=== PATIENT | female | born 1990 | race Caucasian/White ===

== ENCOUNTER 2019-10-15 11:07 | Emergency (ER) | payer OTHER, SELFPAY ==
[2019-10-15 11:12] VITALS: BP 127/73; PULSE 79; RESP 16; TEMP 36.7; O2SAT 100
--- NOTE | 2019-10-15 11:46 | ED.GENADULT ---
HPI - General Adult General Chief complaint: Upper Respiratory Infection Stated complaint: sore throat History of Present Illness HPI narrative: Patient is a 29-year-old female who presents the urgent care via POV for evaluation of a sore throat that began 2 days ago. Additionally, she reports her throat pain is intermittent and a blistering pain . Current pain is 7 out of 10 on a pain scale. History of strep. Today symptoms are different than previous episodes of strep. Throat pain improves with ibuprofen and worsens with swallowing. Pertinent negatives: fever, chills, poor p.o. intake, myalgias, flu-like symptoms, ear pain/drainage, sinus trouble, headache, nasal congestion, rhinorrhea, lymphadenopathy, dizziness, LOC, inability to swallow, drooling, hoarseness, halitosis, abdominal pain, nausea, vomiting, diarrhea, cough, wheezing, sob, chest pain, heart murmurs, and heart palpations. Related Data Home Medications Medication Instructions Recorded Confirmed ibuprofen 200 mg PO Q6H PRN 10/15/19 10/15/19 Allergies Allergy/AdvReac Type Severity Reaction Status Date / Time oxycodone Allergy Intermediate SWELLING Verified 10/15/19 11:17 OF TONGUE Review of Systems Review of Systems: Narrative: All other systems reviewed and are negative PMFSH Past Medical History Medical History IUD (intrauterine device) in place Kidney stone Surgical History Surgical History H/O shoulder surgery Rt History of nasal surgery History of tonsillectomy Social History Social History Smoking status: Former smoker Gender identity (if verbalized by the patient): Female Comments I have reviewed and agree with the patient's past medical, surgical, social, and family hx as documented by the RN. There is no relevant family history pertinent to the presenting complaint. Exam Narrative: Exam Narrative: GENERAL: Well-appearing, well-nourished, and in no acute distress. HEAD: Normocephalic, atraumatic. No sinus tenderness or facial swelling appreciated. EYES: PERRLA and EOMI. No evidence of erythema, swelling, or drainage. ENT: Bilateral external ears and ear canals normal. Bilateral TMs are normal.No TM perforation. Nares clear, no rhinorrhea or epistaxis. Bilateral turbinates without erythema/ swelling. Mucous membranes moist and pink. Moderate erythema appreciated to posterior pharynx. Uvula is midline without erythema and swelling. No evidence of petechial rash, cobblestoning, lesions, ulcers, swelling, exudates, peritonsillar abscess, tenting, or drooling. Breath odor and voice normal. NECK: Supple. No Lymphadenopathy or nuchal rigidity appreciated. CHEST: Bilateral lung garcia are clear to auscultation. No respiratory distress. No evidence of cough or pleuritic cp upon examination. HEART: Regular rate and rhythm. No murmur, gallop, or rub heard. EXTREMITIES: Normal range of motion. No edema. SKIN: Warm, dry, no rash. NEURO: No focal deficits. Alert and oriented x3. . Course Vital Signs Vital signs: Vital Signs Temperature 98.1 F 10/15/19 11:12 Pulse Rate 79 10/15/19 11:12 Respiratory Rate 16 10/15/19 11:12 Blood Pressure 127/73 10/15/19 11:12 Pulse Oximetry 100 10/15/19 11:12 Temperature 98.1 F 10/15/19 11:12 Pulse Rate 79 10/15/19 11:12 Respiratory Rate 16 10/15/19 11:12 Blood Pressure 127/73 10/15/19 11:12 Pulse Oximetry 100 10/15/19 11:12 Medical Decision Making Differential Diagnosis Differential Diagnosis: Allergic rhinitis, ABRS, acute viral sinusitis, strep pharyngitis, nasopharyngitis, bronchitis, pneumonia, AOM, otitis externa, viral URI, influenza Medical Records Medical records reviewed: Yes I reviewed the patient's medical records. Vital Signs Vital Signs: Vital Signs Temp
== END 2019-10-15 12:00 | disposition home or self-care (01) ==
PROVIDERS: Emergency Provider Nurse Practitioner Family
DX: J02.9 Acute pharyngitis, unspecified (principal)
CPT/HCPCS: 87081; 87880; 99213; G0463

== ENCOUNTER 2022-04-26 10:06 | Outpatient (CLI) | payer OTHER, BC, SELFPAY ==
[2022-04-26 10:37] LABS: Hematocrit 35.5 % (37.0-47.0); Hemoglobin 11.8 g/dL (12.0-15.0); Mean Corpuscular HGB Conc 33.2 g/dl (32-36); Mean Corpuscular Hemoglobin 31.1 pg (26-34); Mean Corpuscular Volume 93.7 fl (80-100); Mean Platelet Volume 11.4 fl (7.4-10.4); Platelet Count Result 221 k/mm3 (150-375); Red Blood Count 3.79 M/mm3 (4.2-5.4); Red Cell Distribution Width 14.2 % (11.5-14.5)
[2022-04-27 07:08] LABS: Rapid Plasma Reagin Non-Reactive (NonReactive)
== END 2022-04-26 10:07 | disposition home or self-care (01) ==
PROVIDERS: PCP Family Medicine; Visit Provider Family Medicine
DX: Z34.93 Encounter for supervision of normal pregnancy, unspecified, third trimester (principal); Z3A.00 Weeks of gestation of pregnancy not specified
CPT/HCPCS: 36415; 85027; 86592; 86850; 86900; 86901

== ENCOUNTER 2022-04-27 09:56 | Inpatient (IN) | payer OTHER, BC, SELFPAY ==
[2022-04-27] VITALS (57 sets, daily range): BP systolic 96–125; BP diastolic 55–95; PULSE 64–170; RESP 12–18; TEMP 36.3–36.6; O2SAT 96–100; BMI 34.1
--- NOTE | 2022-04-27 09:56 | LDADM ---
This patient, Lena Urrutia, was admitted to Labor/Delivery/Recovery 119 on 04/27/22 at 09:56. Plans for labor, pain management and were discussed with patient. Patient/family oriented to hospital policies and general routines including ID bracelet, bed and alarms, visiting hours, pain management, procedures, bathroom and other care routines, personal items, smoking policy, room service/diet and guest tray routines, infant security routines, and visiting hours. Patient/Family are encouraged to report perceived risks to care and to ask questions if they do not understand what they are told or what they should do. See OBIX for further documentation.
[2022-04-27] MEDS: LACTATED RINGERS 1,000 ML 125 ML IV CONT (10:43)
--- NOTE | 2022-04-27 10:59 | WPDANESEPPF ---
Anes - Initial Pre Proc Eval Procedure: Operation Date: 04/27/22 12:00 Proposed Procedures p Repeat Section - Wojciech Chong MD Date/Time: 04/27/22 10:59 Surgeon: Wojciech Chong MD Pre Op Diagnosis: c/s Patient Data Age: 32 Gender: F Height: 1.55 m Weight: 82 kg Last Vital Signs Pulse 90 04/27/22 10:48 BP 113/77 04/27/22 10:48 Allergies Allergy/AdvReac Type Severity Reaction Status Date / Time oxycodone Allergy Severe Difficulty Verified 04/01/22 12:40 Breathing Home Medications Medication Instructions Recorded Confirmed Type prenat.vits,gila,[id number] 1 tablet PO DAILY 04/01/22 04/27/22 History Patient hx anesthesia problems: none Family hx anesthesia problems: none Results Review: All pre-operative results and documents have been reviewed as part of the pre-operative evaluation. [facility] Past Medical History Medical History (Updated 04/27/22 @ 11:23 by Wojciech Chong MD) Kidney stone Surgical History Surgical History (Updated 04/27/22 @ 11:08 by Wojciech Chong MD) H/O shoulder surgery Rt History of delivery History of nasal surgery History of tonsillectomy Family History Family History Other Deaf Grandparent Hypertension Social History Social History Smoking status: Former smoker Second hand tobacco smoke exposure: No Substance use: never Gender identity (if verbalized by the patient): Female Spiritual care concerns: No Anes - Eval Final PreProcedure Day of Procedure 04/27/22 10:59 Patient weight: obese Heart: regular rate and rhythm Lungs: clear to auscultation and normal air movement Airway: Mallampati scale class II Neurological: alert and oriented Last oral intake: >/= 8 hours ASA classification: II Emergent: no Anesthetic plan: proceed Anesthesia type and monitoring: regional spinal Results Review: All pre-operative results and documents have been reviewed as part of the pre-operative evaluation. Informed Consent: The patient's anesthetic plan and its attendant risks and benefits were discussed with the patient/family/POA. Questions were solicited and answers provided to the satisfaction of the patient/family/POA.
--- NOTE | 2022-04-27 11:05 | P.HP_ITS ---
H&P: HPI History of Present Illness Date/Time: 04/27/22 11:05 Chief Complaint: Here for c section. Narrative: 32 y/o at 39 4/7 weeks gestation here for repeat . GBS neg. essentially uncomplicated. Review of Systems Review of Systems: All systems reviewed & are unremarkable except as noted in HPI and below PMFSH Past Medical History Medical History IUD (intrauterine device) in place Kidney stone Surgical History Surgical History (Updated 04/27/22 @ 11:08 by Wojciech Chong MD) H/O shoulder surgery Rt History of delivery History of nasal surgery History of tonsillectomy Family History Family History Other Deaf Grandparent Hypertension Social History Social History Smoking status: Former smoker Substance use: never Gender identity (if verbalized by the patient): Female Spiritual care concerns: No Meds Home Medications and Allergies Home Medications Medication Instructions Recorded Confirmed Type prenat.vits,gila,xvb-cnul-iaajt 1 tablet PO DAILY 04/01/22 04/01/22 History Allergies Allergy/AdvReac Type Severity Reaction Status Date / Time oxycodone Allergy Severe Difficulty Verified 04/01/22 12:40 Breathing Vital Signs Vital Signs - 24 hr 04/27/22 10:48 04/27/22 11:01 Pulse Rate 90 84 Blood Pressure 113/77 115/73 Exam Const: Orientation/consciousness: patient oriented x3 Other: Well-developed, well-nourished female in no acute distress. Neck: Thyroid: thyroid normal Lymphatic: no lymphadenopathy noted (in neck, axilla or inguinal nodes) Resp: Effort & Inspection: normal respiratory effort Auscultation: clear to auscultation bilaterally Cardio: Rate: regular rate Rhythm: regular rhythm Heart sounds: S1 normal heart sound present and S2 normal heart sound present GI: Other: ABD: Soft, nontender, nondistended, gravid. FHR 150 bpm. FH 38 cm. No guardi ng or rebound tenderness. No hepatosplenomegaly. : General: Yes no CVA tenderness Other: Cervix closed, thick Back/Spine/Pelvis: Back: no CVA tenderness Skin: General skin exam: normal color and no rashes or lesions noted Neuro: General: patient oriented x3 Extrem: Other: Extremities: nontender with no edema Psych: Mental Status: mental status grossly normal Affect: normal affect Assessment and Plan Assessment and plan (1) History of delivery: Code(s): Z98.891 - History of uterine scar from previous surgery Status: Acute Assessment and Plan: A: IUP at 39 4/7 weeks with prior , desiring repeat. P: Offered repeat low transverse delivery. She understands risks of surgery to include risks of anesthesia, risks of pain, infection, bleeding, blood products, thromboembolic phenomena and damage to adjacent structures such as bowel, bladder, ureters, blood vessels and nerves. She understands all these risks and elects to proceed with surgery.
--- NOTE | 2022-04-27 11:23 | WPDHPUPDATE1 ---
History and Physical Update Update Date/Time: 04/27/22 11:23 History and Physical has been reviewed, including an updated exam of the patient. There are NO changes in the patient's condition. Risks, benefits, and alternatives have been discussed and questions answered. Patient agrees to proceed with procedure.
[2022-04-27] MEDS: ceFAZolin 2 GM/D5W 50 ML 2 GM/50 ML BAG IVPB (11:55)
--- NOTE | 2022-04-27 13:02 | PM.OBPRVD ---
OB - Delivery Note Procedure Procedure: Procedures Operation Date: 04/27/22 12:00 <No data on this case meets the specified criteria> Repeat low transverse delivery Delivery monitor: External FHT and External Uterine Route of delivery: Specimen: Yes (cord blood) Quantitative Blood Loss (ml): 650 Anesthesia type: Spinal Disposition: PACU Complications: None Narrative: The patient was taken to the operating room where she was prepared and draped in the usual sterile fashion in dorsal supine position with a leftward tilt. She received cefazolin preoperatively. Spinal anesthesia was found to be adequate. A Pfannenstiel skin incision was made along the previous scar line and was carried through to the underlying layer of the fascia. The fascia was incised in the midline and the incision was extended laterally. The fascia was dissected free of the underlying rectus muscles. The rectus muscles were in the midline. The peritoneum was identified, tented up and entered sharply. The peritoneal incision was extended superiorly and inferiorly with good visualization of the bladder. The bladder blade was placed. The vesicouterine peritoneum was identified, tented up and entered sharply. The incision was extended laterally and the bladder flap was developed. The bladder blade was replaced. The uterus was then incised sharply in a transverse fashion along the lower uterine segment. The incision was extended laterally. The 's head was delivered atraumatically to the sterile field, followed by the body. The nose and mouth were bulb suctioned. After a delay, the cord was clamped and cut. The was handed off the field. Cord blood was collected. The placenta was removed manually and was passed off the field. The uterus was exteriorized and cleared of all clots and debris. The uterine incision was reapproximated using 0 Monocryl in a running, locked fashion. Excellent hemostasis resulted as did excellent reapproximation of the normal anatomy. The uterus was returned the abdomen. The pelvis was irrigated copiously with warmed normal saline. Rigorous hemostasis was assured. The fascial layer was reapproximated using 0 Vicryl in a running fashion. The skin was closed with a running, subcuticular stitch of 4 0 Vicryl. Dermaflex was applied externally. Sponge, lap, needle and instrument counts were correct. The patient was taken to the recovery room in stable condition. The went to the nursery in stable condition. I was present and scrubbed the entire procedure. [place] Baby Date of : 04/27/22 Time of : 12:25 Weeks of gestation at delivery: 39 Infant gender: Female Weight (pounds): 7 Weight (ounces): 13 presentation: vertex Placenta delivery description: Manual Removal and Normal Configuration Cord Vessel Description: 3 Vessels and Delayed Cord Clamping score one minute: 8 score five minutes: 9
--- NOTE | 2022-04-27 13:05 | PM.OBDSVD ---
DS: Admitting Diagnosis Discharge Date 04/29/22 Admitting Diagnosis IUP at 39 4/7 weeks Prior DS: Discharge Diagnosis Discharge Diagnosis (1) delivery delivered: Code(s): O82 - Encounter for delivery without indication Status: Acute OB - DS: Summary OB Procedures : None OB Procedures Intrapartum: OB Procedures: : None Peripartum Data Procedures: Procedures Operation Date: 04/27/22 12:00 <No data on this case meets the specified criteria> Time Spent with Patient Time attestation: Total time spent providing and/or coordinating discharge services: Discharge Plan Discharge Attending physician on discharge: Wojciech Chong Discharging Clinician: Wojciech Chong Patient Disposition: Home, Self-Care Activity: may shower, may drive after 2 weeks and pelvic rest Diet: regular Wound Care Instructions: incision open to air Discharge Instructions: Call or return if temperature above 100.4? F, increased abdominal pain, increased vaginal bleeding or any new problems. Stand Alone Forms: General Discharge Information Follow-up/Referrals: Wojciech Chong MD [Physician] - 4 Weeks Discharge Medications: New ibuprofen 600 mg tablet 600 mg PO Q6H PRN (Reason: cramps) Qty: 30 0RF hydrocodone-acetaminophen 5-325 mg tablet 1 - 2 tablet PO Q6H PRN (Reason: pain) Qty: 30 0RF Continued #2 Tablet 1 tablet PO DAILY Date of admission: 04/27/22 09:56 Primary Care Provider: YvroseAdolph Admitting Provider: Wojciech Chong Attending physician on admission: Wojciech Chong Condition: Stable
[2022-04-27] MEDS: MORPHINE SULFATE INJ (*CRX) 10 MG/ML AMP 2 MG IV PUSH (14:26)
[2022-04-27] MEDS: OXYTOCIN 30 UNITS/NS 500 ML 30 UNITS/500 ML BAG 125 UNITS IV CONT (14:26)
[2022-04-27] MEDS: KETOROLAC 30 MG/ML VIAL (*BKC) IV PUSH ×2 (15:03→22:56)
--- NOTE | 2022-04-27 15:23 | OBPPTRN ---
Patient transferred to post room #285 via stretcher. Support person present. Oriented to unit, room, information board, rooming in, admission packet and security measures. Patient verbalizes understanding.
[2022-04-27] MEDS: HYDROcodone/acetaminophen (*CRX) 5-325 MG TABLET 1 TAB PO (16:30)
[2022-04-27] MEDS: DOCUSATE SODIUM 100 MG CAPSULE PO (17:25)
[2022-04-27] MEDS: HYDROcodone/acetaminophen (*CRX) 10-325 MG TABLET 1 TAB PO ×2 (19:47→22:56)
[2022-04-27] MEDS: DEXTROSE 5%/0.45% SOD CHL 1,000 ML 125 ML IV CONT (21:00)
[2022-04-28] MEDS: HYDROcodone/acetaminophen (*CRX) 10-325 MG TABLET 1 TAB PO ×6 (03:17→22:17)
[2022-04-28] MEDS: SIMETHICONE 80 MG TAB.CHEW PO (03:18)
[2022-04-28 03:30] VITALS: BP 96/60; PULSE 91; RESP 18; TEMP 37.1
[2022-04-28 05:44] LABS: Basophils Percent Auto 0.3 % (0.2-1.2); Eosinophils Percent Auto 0.2 % (0-4.4); Hematocrit 30.6 % (37.0-47.0); Immature Granulocyte Absolute 0.07 K/mm3 (0.00-0.031); Immature Granulocyte Percent A 0.5 % (0-0.5); Lymphocytes Percent Auto 13.7 % (18.3-44.2); Mean Corpuscular HGB Conc 32.7 g/dl (32-36); Mean Corpuscular Hemoglobin 30.9 pg (26-34); Mean Corpuscular Volume 94.4 fl (80-100); Mean Platelet Volume 12.2 fl (7.4-10.4); Monocytes Absolute Auto 0.8 K/mm3 (0.1-0.6); Monocytes Percent Auto 5.8 % (2.6-8.5); Neutrophils Absolute Auto 10.5 K/mm3 (1.3-6.7); Neutrophils Percent Auto 79.5 % (45.5-73.1); Platelet Count Result 211 k/mm3 (150-375); Red Blood Count 3.24 M/mm3 (4.2-5.4); Red Cell Distribution Width 14.1 % (11.5-14.5); White Blood Count 13.2 K/mm3 (4.5-10.0)
[2022-04-28] MEDS: IBUPROFEN 600 MG TABLET PO ×3 (07:34→22:17)
[2022-04-28] MEDS: MULTIVIT/MIN/PREN/FOL AC/IRON TABLET 1 TAB PO (07:34)
[2022-04-28] MEDS: DOCUSATE SODIUM 100 MG CAPSULE PO ×2 (07:35→15:29)
[2022-04-28 08:30] VITALS: BP 106/61; PULSE 90; RESP 18; TEMP 36.6; O2SAT 92
--- NOTE | 2022-04-28 08:46 | WPDANLDPN2 ---
Anes-Prog Note L&D Date/Time: 04/28/22 08:46 Comfortable throughout: section Neuraxial method: spinal Epidural/Spinal procedure site: clean & non-tender Neuro status: Neuro function grossly intact. Cardiovascular status: normal Respiratory status: normal Airway patency: baseline Mental status: baseline Post-Op hydration status: normal Vital Signs: Last Vital Signs Temp 98.8 F 04/28/22 03:30 Pulse 91 04/28/22 03:30 Resp 18 04/28/22 03:30 BP 96/60 L 04/28/22 03:30 Pulse Ox 100 04/27/22 19:45 O2 Del Method Room Air 04/28/22 03:30 Pain score (VAS): 2 I/O: Intake & Output 04/27/22 04/28/22 04/28/22 23:59 07:59 15:59 Intake Total 400 2750 Output Total 300 3800 Balance 100 -1050 Post-procedural complaints: none Patient feedback: Patient satisfied with anesthetic care.
--- NOTE | 2022-04-28 08:46 | WPDANLDNPN2 ---
Anes-Prog Note L&D-Neuraxial Date/Time: 04/28/22 08:46 Neuraxial medications: intrathecal PF morphine Opiod-related complaints: none Patient feedback: Patient satisfied with post-operative pain management.
[2022-04-28] MEDS: TETANUS,DIPHTHERIA,AC PERTUSSIS ADULT (0.5 ML) BOOSTRIX IM (10:42)
[2022-04-28 11:57] VITALS: BP 118/64; PULSE 95; RESP 16; TEMP 36.2; O2SAT 99
--- NOTE | 2022-04-28 13:15 | PM.OBPNVD ---
OB - PN: Subj Subjective Date/time seen: 04/28/22 13:15 Narrative: Pain OK. Tolerating diet. OB - PN: Obj Data Labs CBC & Chem 7: 04/28/22 03:30 Labs: Laboratory Results - last 24 hr 04/28/22 03:30 WBC 13.2 H RBC 3.24 L Hgb 10.0 L Hct 30.6 L MCV 94.4 MCH 30.9 MCHC 32.7 RDW 14.1 Plt Count 211 MPV 12.2 H Immature Gran % (Auto) 0.5 Neut % (Auto) 79.5 H Lymph % (Auto) 13.7 L [place] % (Auto) 5.8 Eos % (Auto) 0.2 Baso % (Auto) 0.3 Lymph # (Auto) 1.80 [place] # (Auto) 0.8 H Eos # (Auto) 0.0 Baso # (Auto) 0.0 Abs Immat Gran (auto) 0.07 H Absolute Neuts (auto) 10.5 H Absolute Nucleated RBC 0.0 Nucleated RBC % 0.0 OB - PN A/P Plan Comments: A: POD#1, doing well. P: Routine care. Exam Narrative: AVSS I/O OK ABD soft, nontender, fundus firm. Incision c/d/i. EXT nontender
[2022-04-28 19:15] VITALS: BP 122/71; PULSE 82; RESP 16; TEMP 36.7; O2SAT 98
[2022-04-29] MEDS: HYDROcodone/acetaminophen (*CRX) 10-325 MG TABLET 1 TAB PO (04:49)
[2022-04-29] MEDS: IBUPROFEN 600 MG TABLET PO ×2 (04:49→12:22)
[2022-04-29] MEDS: MULTIVIT/MIN/PREN/FOL AC/IRON TABLET 1 TAB PO (07:49)
[2022-04-29] MEDS: DOCUSATE SODIUM 100 MG CAPSULE PO (07:49)
[2022-04-29 08:50] VITALS: BP 110/66; PULSE 89; RESP 18; TEMP 37; O2SAT 100
--- NOTE | 2022-04-29 08:59 | PM.OBPNVD ---
OB - PN: Subj Subjective Date/time seen: 04/29/22 08:59 Narrative: Pain OK. Tolerating diet. Would like to go home. OB - PN: Obj Data Labs CBC & Chem 7: 04/28/22 03:30 OB - PN A/P Plan Comments: A: POD#2, doing well. P: Home to f/u 4 weeks. Exam Narrative: AVSS ABD soft, nontender, fundus firm. Incision c/d/i. EXT nontender
[2022-04-29] MEDS: HYDROcodone/acetaminophen (*CRX) 5-325 MG TABLET 1 TAB PO ×2 (09:34→12:22)
--- NOTE | 2022-04-29 10:27 | PC.NURSE ---
[phone] Mother led the conversation with her experience and plan to feed her so far and her ability to independently latch optimally without discomfort, will pump and supplement as needed. Reminded parents to use good handwashing technique to prevent infection. Mother is feeding appropriately for growth of infant and understands stimulating to eat if needed. Infant has had appropriate feedings in the last 24 hours meets the outcomes for weight, output and jaundice at this time. Mother states she is confident to continue effectively breastfeed, pump, then supplement if needed her at home or when to call for assistance and denies any additional assistance or education at this time. Reinforced understanding of milk production, transition of milk, signs of adequate intake, prevention/relief of engorgement, responsive after visualizing feeding cues, the different methods of stimulating infant to breastfeed 2-3 hours after the start of the last feeding, community resources, medication information reviewed per [employer] and when to call a provider using the resource of the mom and baby guide/[facility] website. Mother voiced understanding of the education shared.
--- NOTE | 2022-04-29 12:25 | PC.NURSE ---
Patient instructed on viewing the discharge video Mother & Baby Care, The First Two Weeks . Patient was given the opportunity and encouraged to ask questions. Patient verbalized understanding of information shared and has been given the mother/baby guide for home reference.
== END 2022-04-29 13:21 | disposition home or self-care (01) | DRG 788 ==
LOC: ANHLDR 13:06 → ANHOB2 15:39
PROVIDERS: Admitting Provider Obstetrics & Gynecology; PCP Family Medicine; Visit Provider Obstetrics & Gynecology
PROC: 10D00Z1 Extraction of Products of Conception, Low, Open Approach (ICD-10-PCS; CPT 59514; principal; 2022-04-27 12:00)
DX: O34.219 Maternal care for unspecified type scar from previous cesarean delivery (principal); O69.81X0 Labor and delivery complicated by cord around neck, without compression, not applicable or unspecified; Z3A.39 39 weeks gestation of pregnancy; Z37.0 Single live birth; Z23 Encounter for immunization
CPT/HCPCS: 36415; 85025; 90471; 90686; 90715; A9270; G0008; J0131; J0690; J1885; J2270; J2274; J2370; J2405; J2590; J7120